=== PATIENT | male | born 1970 | race Caucasian/White ===

== ENCOUNTER 2017-07-02 07:43 | Emergency (ER) | payer SELFPAY ==
[~2017-07-02] VITALS: Ht 165.1 cm; Wt 78.3 kg
[2017-07-02 09:23] LABS: BASOPHILS # (AUTO) 0.03 K/uL (0.00-0.20); BASOPHILS % (AUTO) 0.3 % (0.0-2.0); EOSINOPHILS # (AUTO) 0.03 K/uL (0.00-0.70); EOSINOPHILS % (AUTO) 0.32 % (1.0-6.0); HEMOGLOBIN 13.9 g/dL (13.5-17.5); LYMPHOCYTES # (AUTO) 0.9 K/uL (1.0-4.8); MEAN CORPUSCULAR HEMOGLOBIN 29.2 pg (26.0-34.0); MEAN CORPUSCULAR HGB CONC 33.1 G/dL (31.0-37.0); MEAN CORPUSCULAR VOLUME 88 fL (80-100); MONOCYTES # (AUTO) 0.8 K/uL (0.1-1.0); MONOCYTES % (AUTO) 8.1 % (2.0-9.0); NEUTROPHILS # (AUTO) 8.3 K/uL (1.8-7.7); NEUTROPHILS % (AUTO) 82.3 % (40.0-70.0); PLATELET COUNT (AUTO) 285 K/uL (150-450); RED BLOOD CELL COUNT(AUTO) 4.76 MIL/uL (4.50-5.90); RED CELL DISTRIBUTION WIDTH 14.5 % (11.5-14.5)
[2017-07-02 09:31] LABS: ANION GAP 8 mmol/L (8-16); CALCIUM, TOTAL 8.8 mg/dL (8.8-10.5); CARBON DIOXIDE 28 mmol/L (22-29); CHLORIDE 103 mmol/L (98-107); CREATININE 1.04 mg/dL (0.60-1.30); GLOMERULAR FILTR. RATE CALC > 60 mL/min (>60); GLUCOSE,RANDOM 116 mg/dL (70-110); SODIUM SERUM 139 mmol/L (136-145); UREA NITROGEN, BLOOD 13 mg/dL (7-18)
[2017-07-02 09:37] LABS: ALANINE AMINOTRANSFERASE 21 U/L (12-78); ALBUMIN 3.7 g/dL (3.4-5.0); ALKALINE PHOSPHATASE 92 U/L (46-116); ASPARTATE AMINOTRANSFERASE 13 U/L (15-37); BILIRUBIN,TOTAL 0.2 mg/dL (0.1-1.0); TOTAL PROTEIN, SERUM 7.8 g/dL (6.4-8.2)
[2017-07-02 09:45] LABS: PHENYTOIN (DILANTIN) 3.3 mcg/mL (10.0-20.0)
[2017-07-02 09:55] LABS: APPEARANCE,URINE CLOUDY (CLEAR); BILIRUBIN,URINE NEGATIVE (NEGATIVE); GLUCOSE, URINE (UA) NEGATIVE (NEGATIVE); KETONES,URINE NEGATIVE (NEGATIVE); LEUKOCYTE ESTERASE ,URINE NEGATIVE (NEGATIVE); NITRATE,URINE NEGATIVE (NEGATIVE); OCCULT BLOOD,URINE NEGATIVE (NEGATIVE); UROBILINOGEN,URINE 0.2 mg/dL (<=1.0)
[2017-07-02] MEDS ORDERED: LORazepam 2 MG/ML VIAL IM ONE (10:45)
[2017-07-02] MEDS ORDERED: PHENYTOIN SODIUM 1,000 MG in SODIUM CHLORIDE 0.9% 150 ML IV ONE (10:45)
[2017-07-02] MEDS ORDERED: LORazepam 2 MG/ML VIAL ONE (10:45)
[2017-07-02 10:49] LABS: PROTEIN,URINE POS 1+ (NEGATIVE)
[2017-07-02 10:54] LABS: RBC,URINE 0-2 /HPF (0-2); WBC,URINE 0-2 /HPF (0-5)
[2017-07-02 10:55] LABS: BACTERIA,URINE Few /HPF (None Seen); SQUAMOUS EPITHELIAL CELL,UR Few /LPF (None Seen)
[2017-07-02 10:56] LABS: AMORPHOUS SEDIMENT,UR Moderate /LPF (None Seen)
[2017-07-02] MEDS ORDERED: LORazepam 2 MG/ML VIAL IVP ONE (11:00)
[2017-07-02 11:25] LABS: AMPHET/METH SCREEN,URINE NEGATIVE (NEGATIVE); BARBITURATE SCREEN, URINE NEGATIVE (NEGATIVE); BENZODIAZEPINES SCREEN,URINE NEGATIVE (NEGATIVE); CANNABINOID SCREEN,URINE NEGATIVE (NEGATIVE); COCAINE SCREEN,URINE NEGATIVE (NEGATIVE); METHADONE SCREEN, URINE NEGATIVE (NEGATIVE); OPIATE SCREEN,URINE NEGATIVE (NEGATIVE); PHENCYCLIDINE SCREEN,URINE NEGATIVE (NEGATIVE)
[2017-07-02 18:09] VITALS: BP 119/77
== END 2017-07-02 18:09 | disposition home or self-care (01) ==
LOC: EDBD 07:46 → EMS 07:46
DX: G40.909 Epilepsy, unspecified, not intractable, without status epilepticus (principal); I10 Essential (primary) hypertension
CPT/HCPCS: 36415; 80053; 80185; 80307; 81001; 85025; 96374; 96375; 99285; G0480; J1165; J2060; J7050

== ENCOUNTER 2017-08-19 10:54 | Inpatient (IN) | payer SELFPAY ==
[~2017-08-19] VITALS: Ht 165.1 cm; Wt 73.8 kg
[~2017-08-19 10:54] MED LIST: LEVE500T53 PO
[2017-08-19] MEDS ORDERED: LORazepam 2 MG TABLET PO ONE (12:00)
[2017-08-19 12:25] LABS: AMPHET/METH SCREEN,URINE NEGATIVE (NEGATIVE); BARBITURATE SCREEN, URINE NEGATIVE (NEGATIVE); BENZODIAZEPINES SCREEN,URINE NEGATIVE (NEGATIVE); CANNABINOID SCREEN,URINE NEGATIVE (NEGATIVE); COCAINE SCREEN,URINE NEGATIVE (NEGATIVE); METHADONE SCREEN, URINE NEGATIVE (NEGATIVE); OPIATE SCREEN,URINE NEGATIVE (NEGATIVE)
[2017-08-19 12:26] LABS: PHENCYCLIDINE SCREEN,URINE NEGATIVE (NEGATIVE)
[2017-08-19 12:49] LABS: BASOPHILS % (AUTO) 0.9 % (0.0-2.0); EOSINOPHILS % (AUTO) 3.6 % (1.0-6.0); HEMATOCRIT 38.9 % (41-53); HEMOGLOBIN 13.1 g/dL (13.5-17.5); LYMPHOCYTES # (AUTO) 1.7 K/uL (1.0-4.8); LYMPHOCYTES % (AUTO) 21.4 % (22.0-44.0); MEAN CORPUSCULAR HEMOGLOBIN 28.4 pg (26.0-34.0); MEAN CORPUSCULAR HGB CONC 33.7 G/dL (31.0-37.0); MEAN CORPUSCULAR VOLUME 84 fL (80-100); MONOCYTES % (AUTO) 12.6 % (2.0-9.0); NEUTROPHILS # (AUTO) 4.7 K/uL (1.8-7.7); NEUTROPHILS % (AUTO) 61.5 % (40.0-70.0); PLATELET COUNT (AUTO) 269 K/uL (150-450); RED BLOOD CELL COUNT(AUTO) 4.61 MIL/uL (4.50-5.90); RED CELL DISTRIBUTION WIDTH 13.7 % (11.5-14.5)
[2017-08-19 12:57] LABS: ANION GAP 11 mmol/L (8-16); CALCIUM, TOTAL 8.7 mg/dL (8.8-10.5); CARBON DIOXIDE 26 mmol/L (22-29); CHLORIDE 103 mmol/L (98-107); CREATININE 1.08 mg/dL (0.60-1.30); GLOMERULAR FILTR. RATE CALC > 60 mL/min (>60); GLUCOSE,RANDOM 96 mg/dL (70-110); POTASSIUM 3.8 mmol/L (3.5-5.1); SODIUM SERUM 140 mmol/L (136-145); UREA NITROGEN, BLOOD 13 mg/dL (7-18)
[2017-08-19 13:06] LABS: ALANINE AMINOTRANSFERASE 23 U/L (12-78); ALBUMIN 3.8 g/dL (3.4-5.0); ALKALINE PHOSPHATASE 85 U/L (46-116); ASPARTATE AMINOTRANSFERASE 17 U/L (15-37); BILIRUBIN,TOTAL 0.3 mg/dL (0.1-1.0); TOTAL PROTEIN, SERUM 7.5 g/dL (6.4-8.2)
[2017-08-19] MEDS ORDERED: MAGNESIUM HYDROXIDE SUSPENSION 30 ML UDCUP PO PRN (14:45)
[2017-08-19] MEDS ORDERED: MAG HYDROX/AL HYDROX/SIMETH ES 30 ML SUSPENSION UDCUP PO PRN (14:45)
[2017-08-19] MEDS ORDERED: LORazepam 2 MG TABLET PO PRN (14:45)
[2017-08-19] MEDS ORDERED: TUBERCULIN, PURIFIED PROTEIN DERIVATIVE 5 TU/0.1 ML SYG ID ONE (14:45)
[2017-08-19] MEDS ORDERED: ACETAMINOPHEN 325 MG TABLET PO PRN (14:45)
[2017-08-19] MEDS ORDERED: GuaiFENesin/D-METHORPHAN [SUGAR-FREE] 200-20MG/10 ML SYRUP UDCUP PO PRN (14:45)
[2017-08-19] MEDS ORDERED: HydrOXYzine PAMOATE 50 MG CAPSULE PO PRN (14:45)
[2017-08-19] MEDS ORDERED: PROMETHAZINE HCL 25 MG TABLET PO PRN (14:45)
[2017-08-19] MEDS ORDERED: ZOLPIDEM TARTRATE 10 MG TABLET PO PRN (14:45)
[2017-08-19] MEDS ORDERED: OLANZapine 5 MG RAPDIS TABLET PO PRN (14:45)
[2017-08-19] MEDS ORDERED: LOPERAMIDE HCL 2 MG CAPSULE PO PRN (14:45)
[2017-08-19] MEDS: LevETIRAcetam 500 MG TABLET PO SCH (21:38)
[2017-08-19] MEDS: THIAMINE HCL 100 MG TABLET PO SCH (21:38)
[2017-08-19] MEDS: OLANZapine 5 MG RAPDIS TABLET PO SCH (21:38)
[2017-08-20] VITALS: BP 131/71
[2017-08-20] MEDS ORDERED: PNEUMOCOCCAL VACCINE POLYVALENT 0.5 ML VIAL [PPSV23] IM ONE (02:00)
[2017-08-20] MEDS ORDERED: INFLUENZA VIRUS VACCINE QVS 2017-18 (3YR+)/PF 60 MCG/0.5 ML SYRINGE IM ONE (02:00)
[2017-08-20] MEDS: FOLIC ACID 1 MG TABLET PO SCH (08:39)
[2017-08-20] MEDS: THIAMINE HCL 100 MG TABLET PO SCH ×2 (08:40→17:00)
[2017-08-20] MEDS: LevETIRAcetam 500 MG TABLET PO SCH ×2 (08:40→17:00)
[2017-08-20] MEDS: MULTIVITAMINS WITH MINERALS, THERAPEUTIC TABLET PO SCH (08:40)
[2017-08-20] MEDS: OLANZapine 5 MG RAPDIS TABLET PO SCH (20:26)
[2017-08-21 08:44] VITALS: BP 124/82
[2017-08-21] MEDS: LevETIRAcetam 500 MG TABLET PO SCH ×2 (10:40→17:44)
[2017-08-21] MEDS: THIAMINE HCL 100 MG TABLET PO SCH ×2 (10:40→17:44)
[2017-08-21] MEDS: FOLIC ACID 1 MG TABLET PO SCH (10:40)
[2017-08-21] MEDS: MULTIVITAMINS WITH MINERALS, THERAPEUTIC TABLET PO SCH (10:41)
[2017-08-21] MEDS: OLANZapine 5 MG RAPDIS TABLET PO SCH (20:37)
[2017-08-22 08:00] VITALS: BP 120/75
[2017-08-22] MEDS: FOLIC ACID 1 MG TABLET PO SCH (08:32)
[2017-08-22] MEDS: THIAMINE HCL 100 MG TABLET PO SCH ×2 (08:32→15:57)
[2017-08-22] MEDS: MULTIVITAMINS WITH MINERALS, THERAPEUTIC TABLET PO SCH (08:32)
[2017-08-22] MEDS: LevETIRAcetam 500 MG TABLET PO SCH ×2 (08:32→15:57)
[2017-08-22] MEDS ORDERED: OLAN10TA22 PO (15:43)
[2017-08-22] MEDS ORDERED: LEVE500T53 PO (15:43)
[2017-08-22 17:23] VITALS: BP 120/62
[2017-08-22] MEDS ORDERED: OLANZapine 10 MG RAPDIS TABLET PO SCH (21:00)
[2017-08-23] MEDS: LevETIRAcetam 500 MG TABLET PO SCH ×2 (08:13→16:15)
[2017-08-23] MEDS: MULTIVITAMINS WITH MINERALS, THERAPEUTIC TABLET PO SCH (08:13)
[2017-08-23] MEDS: THIAMINE HCL 100 MG TABLET PO SCH ×2 (08:13→16:15)
[2017-08-23] MEDS: FOLIC ACID 1 MG TABLET PO SCH (08:13)
[2017-08-23 08:52] VITALS: BP 152/97
[2017-08-23 16:09] VITALS: BP 151/85
== END 2017-08-23 18:00 | disposition home or self-care (01) | DRG 885 ==
LOC: EMS 10:56 → 3EC 22:30
PROVIDERS: ADMIT Psychiatry & Neurology Psychiatry; ATTEND Psychiatry & Neurology Psychiatry
DX: F20.0 Paranoid schizophrenia (principal); G40.909 Epilepsy, unspecified, not intractable, without status epilepticus; F17.210 Nicotine dependence, cigarettes, uncomplicated; Z28.21 Immunization not carried out because of patient refusal; I10 Essential (primary) hypertension; Z68.29 Body mass index [BMI] 29.0-29.9, adult; Z87.820 Personal history of traumatic brain injury; Z91.14 Patient's other noncompliance with medication regimen; Z91.19 Patient's noncompliance with other medical treatment and regimen
CPT/HCPCS: 70450; 99285; G0480; G0482

== ENCOUNTER 2018-11-03 14:47 | Inpatient (IN) | payer SELFPAY ==
[~2018-11-03] VITALS: Ht 165.1 cm; Wt 77.8 kg
[~2018-11-03 14:47] MED LIST changes: +OLAN10TA22 PO
[2018-11-03 15:04] LABS: GLUCOSE,POINT OF CARE 105 MG/DL (70-110)
[2018-11-03 15:16] LABS: BASOPHILS % (AUTO) 0.4 % (0.0-2.0); EOSINOPHILS % (AUTO) 0.2 % (1.0-6.0); HEMATOCRIT 40.5 % (41-53); HEMOGLOBIN 12.6 g/dL (13.5-17.5); LYMPHOCYTES # (AUTO) 1.1 K/uL (1.0-4.8); LYMPHOCYTES % (AUTO) 14.1 % (22.0-44.0); MEAN CORPUSCULAR HEMOGLOBIN 23.6 pg (26.0-34.0); MEAN CORPUSCULAR VOLUME 76 fL (80-100); MONOCYTES # (AUTO) 0.8 K/uL (0.1-1.0); MONOCYTES % (AUTO) 10.1 % (2.0-9.0); NEUTROPHILS # (AUTO) 5.7 K/uL (1.8-7.7); NEUTROPHILS % (AUTO) 75.2 % (40.0-70.0); PLATELET COUNT (AUTO) 322 K/uL (150-450); RED BLOOD CELL COUNT(AUTO) 5.33 MIL/uL (4.50-5.90); RED CELL DISTRIBUTION WIDTH 17.2 % (11.5-14.5)
[2018-11-03 15:34] LABS: CALCIUM, TOTAL 9.2 mg/dL (8.8-10.5); CREATININE 1.41 mg/dL (0.60-1.30); POTASSIUM 4.5 mmol/L (3.5-5.1)
[2018-11-03 15:40] LABS: ALBUMIN 3.7 g/dL (3.4-5.0); BILIRUBIN,TOTAL 0.2 mg/dL (0.1-1.0); TOTAL PROTEIN, SERUM 7.8 g/dL (6.4-8.2)
[2018-11-03] MEDS ORDERED: LevETIRAcetam 1,000 MG in DEXTROSE 5%-WATER 100 ML IV ONE (15:45)
[2018-11-03] MEDS ORDERED: LORazepam 2 MG/ML VIAL ONE (16:06)
[2018-11-03] MEDS ORDERED: LORazepam 2 MG/ML VIAL IVP ONE (16:15)
[2018-11-03 16:16] LABS: AMPHET/METH SCREEN,URINE NEGATIVE (NEGATIVE); BARBITURATE SCREEN, URINE NEGATIVE (NEGATIVE); BENZODIAZEPINES SCREEN,URINE NEGATIVE (NEGATIVE); CANNABINOID SCREEN,URINE NEGATIVE (NEGATIVE); COCAINE SCREEN,URINE NEGATIVE (NEGATIVE); METHADONE SCREEN, URINE NEGATIVE (NEGATIVE); OPIATE SCREEN,URINE NEGATIVE (NEGATIVE)
[2018-11-03 16:17] LABS: PHENCYCLIDINE SCREEN,URINE NEGATIVE (NEGATIVE)
[2018-11-03] MEDS ORDERED: SODIUM CHLORIDE 0.9% 1,000 ML IV ONE (20:00)
[2018-11-03] MEDS ORDERED: ZOLPIDEM TARTRATE 5 MG TABLET PO PRN (20:15)
[2018-11-03] MEDS ORDERED: IPRATROPIUM BROMIDE 0.5 MG/2.5 ML NEB SOLUTION NEB PRN (20:15)
[2018-11-03] MEDS ORDERED: ALBUTEROL SULFATE 2.5 MG/0.5 ML NEB SOLUTION NEB PRN (20:15)
[2018-11-03] MEDS ORDERED: ONDANSETRON HCL 4 MG/2 ML VIAL IVP PRN (20:15)
[2018-11-03] MEDS ORDERED: MAGNESIUM HYDROXIDE SUSPENSION 30 ML UDCUP PO PRN (20:15)
[2018-11-03] MEDS ORDERED: CloNIDine HCL 0.1 MG TABLET PO PRN (20:15)
[2018-11-03] MEDS ORDERED: BISACODYL 10 MG RECTAL RECTAL SUPPOSITORY PR PRN (20:15)
[2018-11-03] MEDS ORDERED: ACETAMINOPHEN 325 MG TABLET PO PRN (20:15)
[2018-11-03] MEDS: DEXTROSE 5%-0.45% SODIUM CHL 1,000 ML IV SCH ×2 (20:44→22:11)
[2018-11-03] MEDS: LORazepam 1 MG TABLET PO SCH (21:19)
[2018-11-03] MEDS: OLANZapine 10 MG RAPDIS TABLET PO SCH (21:19)
[2018-11-03] MEDS: HEPARIN SODIUM,PORCINE 5,000 UNITS/ML VIAL SQ SCH (21:20)
[2018-11-03 23:23] VITALS: BP 137/70
[2018-11-04] MEDS ORDERED: PNEUMOCOCCAL VACCINE POLYVALENT 0.5 ML VIAL [PPSV23] IM ONE (06:15)
[2018-11-04 07:12] VITALS: BP 116/70
[2018-11-04] MEDS: FAMOTIDINE 20 MG TABLET PO SCH (08:24)
[2018-11-04] MEDS: HEPARIN SODIUM,PORCINE 5,000 UNITS/ML VIAL SQ SCH ×2 (08:24→20:29)
[2018-11-04] MEDS: LORazepam 1 MG TABLET PO SCH ×3 (08:24→20:28)
[2018-11-04] MEDS: THIAMINE HCL 100 MG TABLET PO SCH (08:24)
[2018-11-04] MEDS: FOLIC ACID 1 MG TABLET PO SCH (08:24)
[2018-11-04] MEDS: LevETIRAcetam 500 MG TABLET PO SCH ×2 (08:24→20:28)
[2018-11-04 08:54] LABS: BASOPHILS % (AUTO) 0.7 % (0.0-2.0); EOSINOPHILS % (AUTO) 1.5 % (1.0-6.0); HEMATOCRIT 38.8 % (41-53); HEMOGLOBIN 12.1 g/dL (13.5-17.5); LYMPHOCYTES # (AUTO) 1.8 K/uL (1.0-4.8); LYMPHOCYTES % (AUTO) 29.1 % (22.0-44.0); MEAN CORPUSCULAR HEMOGLOBIN 23.6 pg (26.0-34.0); MEAN CORPUSCULAR HGB CONC 31.1 G/dL (31.0-37.0); MEAN CORPUSCULAR VOLUME 76 fL (80-100); MONOCYTES # (AUTO) 0.9 K/uL (0.1-1.0); MONOCYTES % (AUTO) 15.1 % (2.0-9.0); NEUTROPHILS # (AUTO) 3.3 K/uL (1.8-7.7); NEUTROPHILS % (AUTO) 53.6 % (40.0-70.0); PLATELET COUNT (AUTO) 301 K/uL (150-450); RED BLOOD CELL COUNT(AUTO) 5.13 MIL/uL (4.50-5.90)
[2018-11-04 09:14] LABS: % IRON SATURATION 9.9 % (30-44); IRON, SERUM 38 mcg/dL (50-175); TOTAL IRON BINDING CAPACITY 382 mcg/dL (250-450)
[2018-11-04 09:15] LABS: ALANINE AMINOTRANSFERASE 18 U/L (12-78); ALBUMIN 3.2 g/dL (3.4-5.0); ALKALINE PHOSPHATASE 77 U/L (46-116); ANION GAP 6 mmol/L (8-16); ASPARTATE AMINOTRANSFERASE 16 U/L (15-37); BILIRUBIN,TOTAL 0.3 mg/dL (0.1-1.0); CALCIUM, TOTAL 8.4 mg/dL (8.8-10.5); CARBON DIOXIDE 30 mmol/L (22-29); CHLORIDE 109 mmol/L (98-107); CREATININE 1.03 mg/dL (0.60-1.30); GLOMERULAR FILTR. RATE CALC > 60 mL/min (>60); GLUCOSE,RANDOM 90 mg/dL (70-110); PHOSPHORUS 2.9 mg/dL (2.5-4.9); POTASSIUM 3.9 mmol/L (3.5-5.1); SODIUM SERUM 145 mmol/L (136-145); UREA NITROGEN, BLOOD 10 mg/dL (7-18)
[2018-11-04 11:01] VITALS: BP 131/63
[2018-11-04] MEDS: MULTIVITAMINS WITH MINERALS, THERAPEUTIC TABLET PO SCH (15:37)
[2018-11-04] MEDS: DEXTROSE 5%-0.45% SODIUM CHL 1,000 ML IV SCH (15:37)
[2018-11-04 19:00] VITALS: BP 151/87
[2018-11-04] MEDS: OLANZapine 10 MG RAPDIS TABLET PO SCH (20:28)
[2018-11-04 23:00] VITALS: BP 140/91
[2018-11-05] MEDS: DEXTROSE 5%-0.45% SODIUM CHL 1,000 ML IV SCH ×2 (02:11→12:11)
[2018-11-05 03:06] VITALS: BP 145/86
[2018-11-05 08:02] VITALS: BP 130/76
[2018-11-05] MEDS: MULTIVITAMINS WITH MINERALS, THERAPEUTIC TABLET PO SCH (08:31)
[2018-11-05] MEDS: HEPARIN SODIUM,PORCINE 5,000 UNITS/ML VIAL SQ SCH (08:31)
[2018-11-05] MEDS: THIAMINE HCL 100 MG TABLET PO SCH (08:31)
[2018-11-05] MEDS: LORazepam 1 MG TABLET PO SCH (08:31)
[2018-11-05] MEDS: FOLIC ACID 1 MG TABLET PO SCH (08:31)
[2018-11-05] MEDS: FAMOTIDINE 20 MG TABLET PO SCH (08:31)
[2018-11-05] MEDS: LevETIRAcetam 500 MG TABLET PO SCH (08:32)
[2018-11-05 11:51] VITALS: BP 122/83
== END 2018-11-05 17:05 | disposition home or self-care (01) | DRG 101 ==
LOC: EMS 14:47 → 5S 21:52
PROVIDERS: ADMIT Internal Medicine; ATTEND Internal Medicine
DX: G40.901 Epilepsy, unspecified, not intractable, with status epilepticus (principal); I10 Essential (primary) hypertension; D50.9 Iron deficiency anemia, unspecified; F10.10 Alcohol abuse, uncomplicated; R79.89 Other specified abnormal findings of blood chemistry; Z91.14 Patient's other noncompliance with medication regimen; Z91.19 Patient's noncompliance with other medical treatment and regimen; Z79.899 Other long term (current) drug therapy
CPT/HCPCS: 70450; 83540; 83550; 83735; 84100; 96365; 96366; 96375; G0378; G0480; G0482; J0712; J1644; J2060; J7030; J7060